=== PATIENT | male | born 1960 | race Caucasian/White ===

== ENCOUNTER 2018-10-06 05:55 | Day surgery (SDC) | payer OTHER ==
[2018-10-06] MEDS ORDERED: PROPOFOL 40 ML (08:10)
[2018-10-06] MEDS ORDERED: LIDOCAINE 2% (SDV) 5 ML INJ (08:10)
[2018-10-06] MEDS ORDERED: PROPOFOL 200 MG INJ (08:10)
== END 2018-10-06 12:58 | disposition home or self-care (01) ==
LOC: GIL 05:55
DX: Z12.11 Encounter for screening for malignant neoplasm of colon (principal); K64.8 Other hemorrhoids; K57.30 Diverticulosis of large intestine without perforation or abscess without bleeding; E11.9 Type 2 diabetes mellitus without complications; I10 Essential (primary) hypertension
CPT/HCPCS: 45378; 82962